=== PATIENT | male | born 1945 | race Caucasian/White ===

== ENCOUNTER 2023-01-26 12:34 | Emergency (ER) | payer OTHER ==
[~2023-01-26] VITALS: Ht 185.4 cm; Wt 85.3 kg
[2023-01-26] MEDS ORDERED: TOPROL XL100 M1 (12:40)
[2023-01-26] MEDS ORDERED: AMLODIPINE BESYL5 MG PO (12:42)
[2023-01-26] MEDS ORDERED: TAMS0.4C PO (12:42)
[2023-01-26 16:49] LABS: HEMATOCRIT 34.9 % (39.0-48.0); HEMOGLOBIN 12.1 g/dL (13-16.00); MEAN CELL VOLUME 87.5 fL (80.0-100.00); MEAN CORPUSCULAR HEMOGLOBIN 30.4 pg (27.00-32.0); MEAN CORPUSCULAR HGB CONC 34.7 g/dl (32.0-36.0); PLATELET COUNT 329 K/uL (150-450); RED BLOOD COUNT 3.99 M/uL (4.00-6.00); RED CELL DISTRIBUTION WIDTH 13.3 % (11.5-14.5)
[2023-01-26 17:10] LABS: CREATININE SERUM 1.01 mg/dL (0.70-1.30); GFR 71.07; POTASSIUM 4.23 mEq/L (3.5-5.1)
== END 2023-01-26 21:05 | disposition home or self-care (01) ==
LOC: ER 12:34
PROVIDERS: General Practice
DX: N39.0 Urinary tract infection, site not specified (principal); R30.0 Dysuria
CPT/HCPCS: 36415; 96365; 99284; J3490

== ENCOUNTER 2023-07-21 19:38 | Inpatient (IN) | payer OTHER ==
[~2023-07-21] VITALS: Ht 188 cm; Wt 76.2 kg
[~2023-07-21 19:38] MED LIST: AMLODIPINE BESYL5 MG PO; TAMS0.4C PO; TOPROL XL100 M1
--- NOTE | 2023-07-21 19:55 | NUR ---
SE RECIBE PTE ALERTA Y ORIENTADO X3. REFIERE VARIOS EPISODIOS DE DIARREA DOLOR ABDOMINAL Y RETENCION URINARIA EN EL ENRIQUE DE HO[place]. SE MIDE SV Y SE UBICA
[2023-07-21] MEDS ORDERED: FAMOTIDINE/PF 20 MG in 0.9 % SODIUM CHLORIDE 8 ML IV PUSH STA (20:34)
[2023-07-21] MEDS ORDERED: HYOSCYAMINE SULFATE 0.125 MG TAB.SUBL SL ONE (20:45)
[2023-07-21] MEDS ORDERED: 0.9 % SODIUM CHLORIDE 1,000 ML IV ONE (20:45)
[2023-07-21] MEDS ORDERED: ONDANSETRON HCL 2 MG/ML VIAL IV ONE (20:45)
[2023-07-21 21:11] LABS: HEMATOCRIT 32.8 % (39.0-48.0); HEMOGLOBIN 11.2 g/dL (13-16.00); MEAN CELL VOLUME 87.6 fL (80.0-100.00); MEAN CORPUSCULAR HGB CONC 34.3 g/dl (32.0-36.0); PLATELET COUNT 335 K/uL (150-450); RED BLOOD COUNT 3.75 M/uL (4.00-6.00); RED CELL DISTRIBUTION WIDTH 13.4 % (11.5-14.5)
--- NOTE | 2023-07-21 21:37 | NUR ---
SE ORIENTA PTE SOBRE TX A SEGUIR, EL CUAL REFIERE ENTENDER. SE COLECTAN MUESTRAS Y SE ADM. MEDICAMENTOS CLARA ORDEN MEDICA BAJO MEDIDAS ASEPTICAS
[2023-07-21 21:56] LABS: ALBUMIN 1.6 gm/dL (3.4-5.0); BILIRUBIN TOTAL 0.27 mg/dL (0.3-1.2); BILIRUBIN,CONJUGATED 0.1 mg/dL (0.0-0.2); BILIRUBIN,UNCONJUGATED 0.17 mg/dL (0.0-0.6); CREATININE SERUM 0.46 mg/dL (0.70-1.30); GFR 176.15; GLOBULINA 2.7 G/DL (2.4-3.5); TOTAL PROTEIN 4.3 gm/dL (6.4-8.2)
[2023-07-21 22:01] LABS: POTASSIUM 2.5 mEq/L (3.5-5.1)
[2023-07-21 22:02] LABS: CALCIUM 5.4 mg/dL (8.5-10.1)
[2023-07-21] MEDS ORDERED: POTASSIUM CHLORIDE/D5-0.9%NACL 1,000 ML IV ONE (22:15)
[2023-07-22] MEDS ORDERED: 0.9 % SODIUM CHLORIDE 1,000 ML IV SCH (01:30)
[2023-07-22] MEDS ORDERED: METRONIDAZOLE/SODIUM CHLORIDE 100 ML IV SCH (01:36)
[2023-07-22] MEDS ORDERED: LACTOBACILLUS ACIDOPHILUS 1 CAP CAP PO SCH (01:37)
[2023-07-22] MEDS ORDERED: DIPHENOXYLATE HCL/ATROPINE 1 UDTAB TABLET PO SCH (01:44)
[2023-07-22] MEDS ORDERED: CIPROFLOXACIN IN 5 % DEXTROSE 200 ML IV SCH (01:45)
[2023-07-22] MEDS ORDERED: ACETAMINOPHEN 500 MG GEL..CAP PO PRN (01:45)
[2023-07-22] MEDS ORDERED: hydrALAZINE HCL 20 MG VIAL IV PRN (01:45)
[2023-07-22] MEDS ORDERED: ONDANSETRON HCL 4 MG in 0.9 % SODIUM CHLORIDE 50 ML IV PRN (01:45)
[2023-07-22] MEDS ORDERED: POTASSIUM CHLORIDE IN WATER 100 ML IV SCH (05:00)
[2023-07-22 06:15] LABS: CKMB 1.8 NG/ML (0.5-3.6)
[2023-07-22] MEDS ORDERED: PANTOPRAZOLE SODIUM 40 MG in 0.9 % SODIUM CHLORIDE 8 ML IV PUSH SCH (09:00)
[2023-07-22] MEDS ORDERED: AMLODIPINE BESYLATE 5 MG TABLET PO SCH (09:00)
[2023-07-22] MEDS ORDERED: APIXABAN 5 MG TABLET PO SCH (09:00)
[2023-07-22] MEDS ORDERED: METOPROLOL TARTRATE 50 MG TABLET PO SCH (09:00)
[2023-07-22 10:26] LABS: ALBUMIN 2.9 gm/dL (3.4-5.0); BILIRUBIN TOTAL 0.62 mg/dL (0.3-1.2); CALCIUM 8.8 mg/dL (8.5-10.1); CREATININE SERUM 0.96 mg/dL (0.70-1.30); GFR 75.36; GLOBULINA 5.2 G/DL (2.4-3.5); POTASSIUM 4.3 mEq/L (3.5-5.1); TOTAL PROTEIN 8.1 gm/dL (6.4-8.2)
[2023-07-23 07:14] LABS: ALBUMIN 2.6 gm/dL (3.4-5.0); BILIRUBIN TOTAL 0.7 mg/dL (0.3-1.2); BILIRUBIN,CONJUGATED 0.17 mg/dL (0.0-0.2); BILIRUBIN,UNCONJUGATED 0.53 mg/dL (0.0-0.6); CALCIUM 8.3 mg/dL (8.5-10.1); CHOL HDL RATIO 4.2 (0-5.0); CREATININE SERUM 0.8 mg/dL (0.70-1.30); GFR 93.01; GLOBULINA 3.7 G/DL (2.4-3.5); POTASSIUM 4.16 mEq/L (3.5-5.1); TOTAL PROTEIN 6.3 gm/dL (6.4-8.2)
[2023-07-23 07:26] LABS: PH,URINE 5.5 (5.0-8.0); URINE APPEARANCE Clear; URINE BILIRRUBIN Negative (NEGATIVE); URINE BLOOD Negative; URINE COLOR Yellow; URINE GLUCOSE Negative (NEGATIVE); URINE LEUKOCYTE Negative; URINE NITRATE Negative; URINE PROTEIN Negative (NEGATIVE); URINE UROBILINOGEN 0.2 E.U./dl
[2023-07-23 07:28] LABS: URINE RBC 3.5 uL (0.0-20.8); URINE WBC 4.9 uL (0.0-23.2)
[2023-07-23 07:45] LABS: INR 1.2; PARTIAL THROMBOPLASTIN TIME 37.5 SECONDS (22.0-34.0); PROTHROMBIN TIME 12.4 SECONDS (9.0-11.5)
[2023-07-23 07:48] LABS: HEMATOCRIT 33.7 % (39.0-48.0); HEMOGLOBIN 11.6 g/dL (13-16.00); MEAN CELL VOLUME 89.1 fL (80.0-100.00); MEAN CORPUSCULAR HEMOGLOBIN 30.7 pg (27.00-32.0); MEAN CORPUSCULAR HGB CONC 34.5 g/dl (32.0-36.0); PLATELET COUNT 382 K/uL (150-450); RED BLOOD COUNT 3.78 M/uL (4.00-6.00); RED CELL DISTRIBUTION WIDTH 13.4 % (11.5-14.5)
[2023-07-23 07:53] LABS: C-REACTIVE PROTEIN 3.73 MG/DL (0.00-0.29)
[2023-07-23 07:57] LABS: URINE BACTERIA 3.7 uL (0.0-1933); URINE EPITHELIAL CELLS 1.3 uL (0.0-38.8)
[2023-07-23 08:23] LABS: ERYTHROCYTE SEDIMENTATION RATE 76 mm/hr
== END 2023-07-23 12:16 | disposition home or self-care (01) | DRG 641 ==
LOC: ER 19:38 → MEDI 07-22 02:06 → SEC-K 07-22 02:06 → MEDI 07-22 03:04 → SEC-K 07-22 03:32 → MEDI 07-22 10:22
PROVIDERS: General Practice; Internal Medicine; ADMIT Internal Medicine; ATTEND Internal Medicine
DX: E83.51 Hypocalcemia (principal); E87.8 Other disorders of electrolyte and fluid balance, not elsewhere classified; E87.6 Hypokalemia; Z20.822 Contact with and (suspected) exposure to COVID-19; R19.7 Diarrhea, unspecified; E86.0 Dehydration